=== PATIENT | female | born 1985 | race Caucasian/White ===

== ENCOUNTER → 2020-05-29 | Outpatient (CLI) | payer MEDICARE | LOC: KOH-I 13:59 | DX: M79.671 Pain in right foot (principal); R10.11 Right upper quadrant pain; K91.5 Postcholecystectomy syndrome; M25.571 Pain in right ankle and joints of right foot; M77.31 Calcaneal spur, right foot | CPT/HCPCS: 73630 ==

== ENCOUNTER → 2020-06-03 | Outpatient (CLI) | payer MEDICARE | LOC: US 09:30 | DX: R10.11 Right upper quadrant pain (principal); K91.5 Postcholecystectomy syndrome; M79.671 Pain in right foot; M25.571 Pain in right ankle and joints of right foot; Z90.49 Acquired absence of other specified parts of digestive tract | CPT/HCPCS: 76705 ==

== ENCOUNTER → 2021-06-10 | Outpatient (CLI) | payer MEDICARE, MEDICAID | LOC: EMI 13:57 | DX: M47.22 Other spondylosis with radiculopathy, cervical region (principal); M50.122 Cervical disc disorder at C5-C6 level with radiculopathy | CPT/HCPCS: 72141 ==

== ENCOUNTER → 2021-10-04 | Outpatient (CLI) | payer MEDICARE, OTHER | LOC: KOH-I 14:34 | DX: M79.671 Pain in right foot (principal); M20.11 Hallux valgus (acquired), right foot; M77.31 Calcaneal spur, right foot | CPT/HCPCS: 73630 ==